=== PATIENT | female | born 1995 | race Caucasian/White ===

== ENCOUNTER 2024-03-04 14:28 | Emergency (ER) | payer BC, SELFPAY ==
[2024-03-04 14:50] VITALS: BP 113/77; PULSE 93; RESP 19; TEMP 36.7; O2SAT 98; BMI 32.4
--- NOTE | 2024-03-04 15:09 | ED_ITS ---
Discharge Plan Referrals Follow up/Referrals: Lynn Alva APRN [Primary Care Provider] - See instructions Print Language Print Language: Mosotho Discharge [facility]: [facility]ynn [facility] General Stated complaint: left leg pain with redness Mode of Arrival: Ambulatory Source of Information: Patient Limitations: No Limitations Time Seen by Provider: 03/04/24 15:07 Description of Symptoms (Recalled from Triage Doc. by RN): PATIENT C/O LEFT LEG PAIN X 2 WEEKS, AND STATES THAT TODAY AFTER TAKING A SHOWER HER LEG WAS RED. SHE STATES IT IS NOT RED NOW HEENT Symptoms (Recalled from RN notes): No Resp Symptoms (Recalled from RN notes): No Skin Symptoms (Recalled from RN notes): No MS Symptoms (Recalled from RN notes): Yes Functional Status (Recalled from RN notes): WNL History of Present Illness Provider Complaint: 28-year-old female presents for right leg red and tender for 2 weeks. Patient states today after taking a shower she looked down and her leg was red she took a picture of it but is not red now. Patient states also yesterday she had an episode where her chest felt tight and lasted a while and she was having trouble catching her breath that went away she has no symptoms at this time. Related Data Allergies Allergy/AdvReac Type Severity Reaction Status Date / Time sulfamethoxazole (From Allergy Unknown Verified 03/04/24 15:03 Bactrim) allergy reaction trimethoprim (From Bactrim) Allergy Unknown Verified 03/04/24 15:03 allergy reaction Worker's Comp Is this a Worker's Comp case?: No [facility] Disclaimer: The information contained in this section may have been updated after the patient was seen, as this information can be updated by other users. Medical History , KAVIN) Depression Anxiety Surgical History , KAVIN) History of tubal ligation Social History , KAVIN) Smoking Status: Unknown if ever smoked alcohol intake: never current occupational status: employed ROS Obtained: Yes Systems reviewed as appropriate & no additional complaints except as documented Physical Exam General General appearance: alert and in no apparent distress ENT ENT exam: Present normal exam Respiratory Respiratory exam: Present normal lung sounds bilaterally Cardiovascular Cardiovascular exam: Present regular rate and normal rhythm Neurological Exam Neurological exam: Present alert and oriented X3 Skin Skin exam: Present warm and intact Medical Decision Making Medical Records Medical records reviewed: Yes I reviewed the patient's medical records. Screening: Per USPSTF and CDC recommendations, given the prevalence of disease in our region, it is our hospital?s policy to screen for HIV and viral Hepatitis for all patients aged 18 and over and those with ongoing risk factors. John Inquiry Pt receiving controlled substance: No John was queried for this patient: No Vital Signs: 03/04/24 14:50 Temperature 98.1 F Temperature Source Oral Pulse Rate [Left Brachial] 93 H Respiratory Rate 19 Blood Pressure [Left Arm] 113/77 Blood Pressure Mean [Left Arm] 89 Blood Pressure Source [Left Arm] Automatic Cuff Blood Pressure Position [Left Arm] Sitting 02 Sat by Pulse Oximetry 98 Oxygen Delivery Method Room Air Lab Data Lab results reviewed: Yes I reviewed the patient's lab results. 03/04/24 15:20 Physician Consults Physician Consulted: Dr. Lim in the ER sent to the ER for eval due to positive D-dimer
[2024-03-04 15:34] LABS: MANUAL DIFFERENTIAL MANUAL DIFFERENTIAL (MANUAL DIFF)
[2024-03-04 15:46] LABS: Albumin Level 4.3 g/dl (3.5-5.0); Chloride 105 mmol/L (98-107); Potassium 3.8 mmoL/L (3.5-5.1); Sodium 139 mmol/L (136-145)
[2024-03-04 15:48] LABS: Blood Urea Nitrogen 9 mg/dl (7-17); Creatinine Clearance Estimated 148 mL/min (50-200); Estimated Glomerular Filt Rate 84 ml/min (>60); GFR (African American) 102 ML/MIN (>60)
[2024-03-04 15:49] LABS: Alanine Aminotransferase 18 U/L (12-78); Albumin/Globulin Ratio 1.2 (1.1-1.8); Alkaline Phosphatase 79 U/L (38-126); Anion Gap 10.8 mEq/L (5-15); Aspartate Amino Transferase 19 U/L (14-36); Bilirubin,Total 0.6 mg/dl (0.2-1.3); Calcium 9.3 mg/dl (8.4-10.2); Carbon Dioxide 27 mmol/L (22.0-30.0); Globulin 3.5 g/dL (1.3-3.2); Glucose 95 mg/dl (74-100); Total Protein,Serum 7.8 g/dl (6.3-8.2)
[2024-03-04 15:59] LABS: D-Dimer 0.68 ug/mL (0.0-0.5)
--- NOTE | 2024-03-04 16:32 | PC.NURSE ---
PATIENT SENT TO ER PER Angelo FRITZ APRN FOR FURTHER EVALUATION. REPORT GIVEN TO DR. LUI PER Angelo FRITZ APRN. PATIENT AMBULATED TO ER WITH [facility] STAFF AT THIS TIME
[2024-03-04 16:34] VITALS: BP 147/82; PULSE 83; O2SAT 100
[2024-03-04 16:36] VITALS: BP 147/82; PULSE 79; RESP 18; TEMP 37.1; O2SAT 100; BMI 34.4
[2024-03-04 16:43] LABS: Eosinophils % 2 % (0-3); Lymphocytes % 28 % (10-50); Monocytes % 2 % (2-9); Neutrophils % 68 % (42-76); Total Cells Counted 100
[2024-03-04 16:44] LABS: Basophils # 0.1 K/mm3 (0-0.2); Basophils % 0.8 % (0.1-2.0); Eosinophils # 0.2 K/mm3 (0.0-0.4); Eosinophils % 2.2 % (0.1-12.0); Hemoglobin 13.6 g/dL (12.2-16.2); Lymphocytes # 1.9 K/mm3 (0.7-4.5); Lymphocytes % 22.9 % (10-50); Mean Corpuscular HGB Conc 34.1 g/dL (31.8-35.4); Mean Corpuscular Hemoglobin 29.7 pg (27.0-31.2); Mean Corpuscular Volume 87.3 fl (81-99); Monocytes # 0.4 K/mm3 (0.1-1.0); Monocytes % 4.3 % (1.7-9.3); Neutrophils # 5.8 K/mm3 (1.8-7.8); Neutrophils % 69.8 % (37.0-80.0); Platelet Count 243 K/mm3 (142-424); Red Blood Count 4.58 M/mm3 (4.20-5.40); Red Cell Distribution Width 12.7 % (11.5-17.5); White Blood Count 8.3 K/mm3 (4.8-10.8)
[2024-03-04 16:45] LABS: Platelet Estimate Normal; RBC Morphology Normal
--- NOTE | 2024-03-04 17:05 | CT_ITS ---
PROCEDURE INFORMATION: Exam: CTA Chest With Contrast Exam date and time: 03/04/2024 6:09 PM Age: 28 years old Clinical indication: Shortness of breath; Additional info: Shortness of reath TECHNIQUE: Imaging protocol: Computed tomographic angiography of the chest with contrast. Exam focused on the arteries. 3D rendering (Not supervised by radiologist): MIP and/or 3D reconstructed images were created by the technologist. Radiation optimization: All CT scans at this facility use at least one of these dose optimization techniques: automated exposure control; mA and/or kV adjustment per patient size (includes targeted exams where dose is matched to clinical indication); or iterative reconstruction. Contrast material: ISO 370; Contrast volume: 70 ml; Contrast route: INTRAVENOUS (IV); COMPARISON: No relevant prior studies available. FINDINGS: Pulmonary arteries: Normal. No pulmonary emboli. Aorta: Unremarkable. No aortic aneurysm. No aortic dissection. Lungs: Unremarkable. No consolidation. No masses. Pleural spaces: Unremarkable. No pneumothorax. No pleural effusion. Heart: Unremarkable. No cardiomegaly. No pericardial effusion. Lymph nodes: Unremarkable. No enlarged lymph nodes. Bones/joints: Unremarkable. No acute fracture. Soft tissues: Unremarkable. IMPRESSION: No acute findings.
--- NOTE | 2024-03-04 17:25 | ED_ITS ---
<Statement entered by Matilda Lim DO - 03/04/24 20:13> I was consulted by the BENJAMIN, and we discussed the complexity of the problems being addressed. I approved the treatment and management plan for this patient's care in the emergency department, thus performing a substantive portion of the medical decision making. CT PE not concerning for PE, and exam is very reassuring with negative bedside DVT ultrasound. Given this, I feel the patient likely has no clot and is appropriate for discharge home with follow-up with primary care and strict return precautions. Patient was discharged after all questions were answered. Matilda Lim DO Discharge Plan Disposition Patient Disposition: Home, Self-Care Condition: Good Referrals Follow up/Referrals: Lynn Alva APRN [Primary Care Provider] - See instructions Activity Restrictions/Add. Instructions Additional Instructions/Restrictions: Fluids and rest. Return to the ED with any worsening symptoms or concerns. Please follow-up with your PCP next week Clinical Impressions Clinical Impression: Lower extremity edema, Shortness of breath Print Language Print Language: Sinhala Discharge ED Provider: Matilda Lim General Adult HPI <Matilda Lim DO - Last Filed: 03/04/24 17:26> General Chief complaint: Extremity Problem,Nontraumatic Stated complaint: left leg pain with redness Time Seen by Provider: 03/04/24 15:07 Mode of Arrival: Ambulatory Source of Information: Patient Limitations: No Limitations Description of Symptoms (Recalled from ER Triage Doc. by RN): left leg pain comes and goes x2 weeks Related Data Allergies Allergy/AdvReac Type Severity Reaction Status Date / Time sulfamethoxazole (From Allergy Unknown Verified 03/04/24 15:03 Bactrim) allergy reaction trimethoprim (From Bactrim) Allergy Unknown Verified 03/04/24 15:03 allergy reaction <Tegan Gasca (ED), [employer] - Last Filed: 03/04/24 19:36> History of Present Illness HPI narrative: This is a 28-year-old female who presents to the ED due to left leg pain and some chest tightness. She initially came into the [facility] for the symptoms. A D- dimer was completed and was 0.68. She was sent over for a CTA. Patient complains of chest tightness that comes and goes. She does not have any chest tightness at this time. No shortness of breath at this time. She says this has been going on for 2 weeks. She also has some left leg pain that she noticed over the past 2 weeks. She did notice after she got out of the shower this morning that it was red on her calf. She says there is no redness no and no pain at this time [facility] <Matilda Lim DO - Last Filed: 03/04/24 17:26> [facility] Disclaimer: The information contained in this section may have been updated after the patient was seen, as this information can be updated by other users. Medical History , [employer]) Depression Anxiety Surgical History , [employer]) History of tubal ligation Social History (Updated 03/04/24 @ 16:29 by Lynn Alva ([facility]), [employer]) Smoking Status: Never smoker alcohol intake: never current occupational status: employed Travel in the last 8 weeks: None <Tegan Gasca (ED), [employer] - Last Filed: 03/04/24 19:36> ROS Obtained: Yes Systems reviewed as appropriate & no additional complaints except as documented Physical Exam <Matilda Lim DO - Last Filed: 03/04/24 17:26> General General appearance: alert and in no apparent distress <Tegan Gasca (ED), [employer] - Last Filed: 03/04/24 19:36> Head Head exam: atraumatic and normocephalic Eye Eye exam: Present normal appearance, PERRL and EOMI ENT ENT exam: Present normal exam, normal oropharynx and mucous membranes moist Neck Neck exam: Present normal inspection, full ROM and trachea midline Respiratory Respiratory exam: Present normal lung sounds bilaterally Cardiovascular Cardiovascular exam: Present regular rate, normal rhythm, normal heart sounds, +S1 and +S2 Abdominal Exam Abdominal exam: Present soft and normal bowel sounds Extremities Exam Extremities exam: Present normal inspection, full ROM and normal capillary refill Back Exam Back exam: Present normal inspection Neurological Exam Neurological exam: Present alert, oriented X3 and normal gait Skin Skin exam: Present warm, dry and intact Medical Decision Making <Matilda Lim DO - Last Filed: 03/04/24 17:26> Medical Records Screening: Per USPSTF and CDC recommendations, given the prevalence of disease in our region, it is our hospital?s policy to screen for HIV and viral Hepatitis for all patients aged 18 and over and those with ongoing risk factors. Vital Signs: 03/04/24 14:50 03/04/24 16:34 03/04/24 16:36 Temperature 98.1 F 98.7 F Temperature Source Oral Oral Pulse Rate 83 Pulse Rate [Left Brachial] 93 H 79 Respiratory Rate 19 18 Blood Pressure 147/82 H Blood Pressure [Left Arm] 113/77 147/82 H Blood Pressure Mean [Left Arm] 89 103 Blood Pressure Source [Left Arm] Automatic Cuff Blood Pressure Position [Left Arm] Sitting 02 Sat by Pulse Oximetry 98 100 100 Oxygen Delivery Method Room Air Lab Data Lab Results 03/04/24 15:20: WBC 8.3, RBC 4.58, Hgb 13.6, Hct 40.0, MCV 87.3, MCH 29.7, MCHC 34.1, RDW 12.7, Plt Count 243, MPV 8.0, Neut % (Auto) 69.8, Lymph % (Auto) 22.9, Maury % (Auto) 4.3, Eos % (Auto) 2.2, Baso % (Auto) 0.8, Neut # (Auto) 5.8, Lymph # (Auto) 1.9, Maury # (Auto) 0.4, Eos # (Auto) 0.2, Baso # (Auto) 0.1, Total Counted 100, Neutrophils % (Manual) 68, Lymphocytes % (Manual) 28, Monocytes % (Manual) 2, Eosinophils % (Manual) 2, Platelet Estimate Normal, RBC Morphology Normal, D-Dimer 0.68 H, Sodium 139, Potassium 3.8, Chloride 105, Carbon Dioxide 27, Anion Gap 10.8, BUN 9, Creatinine 0.80, Estimated Creat Clear 148, Estimated GFR 84, Est GFR ( Amer) 102, Glucose 95, Calcium 9.3, Total Bilirubin 0.6, AST 19, ALT 18, Alkaline Phosphatase 79, Total Protein 7.8, Albumin 4.3, G lobulin 3.5 H, Albumin/Globulin Ratio 1.2 03/04/24 16:54: HIV 1&2 Antibody Rapid Nonreactive 03/04/24 15:20 03/04/24 15:20 Orders (Tests/Meds): ED MEDICATIONS Discontinued Medications Generic Name Dose Route Start Last Admin Trade Name Melia PRN Reason Stop Dose Admin Iopamidol 70 ml 03/04/24 18:16 03/04/24 18:17 Iopamidol-370 (76%);100ml Bottle IV 03/04/24 18:17 70 ml ONCE ONE Administration Sodium Chloride 50 ml 03/04/24 18:16 03/04/24 18:16 0.9 % Sodium Chloride 50 Ml Vial IV 03/04/24 18:17 50 ml ONCE ONE Administration Sodium Chloride 10 ml 03/04/24 18:16 03/04/24 18:17 Sodium Chloride 0.9% 10ml Syr (Rad Only) IV 03/04/24 18:17 10 ml ONCE ONE Administration ORDERS Category Date Time Status CTA Chest [CT angio chest PE protocol] Stat Cat Scan 03/04/24 17:05 Completed POCUS Point of Care (ER Only) Stat Exams 03/04/24 16:40 Taken CBC Man Diff [Complete Blood Count Man Dif] Stat Lab 03/04/24 15:20 Completed CMP [Comprehensive Metabolic Panel] Stat Lab 03/04/24 15:20 Completed D-Dimer Stat Lab 03/04/24 15:20 Completed HIV (1&2) Antibody Rapid Stat Lab 03/04/24 16:54 Completed Hep C Ab with Reflex to RNA Stat Lab 03/04/24 16:54 Received <Tegan Gasca (ED), [employer] - Last Filed: 03/04/24 19:36> John Inquiry Pt receiving controlled substance: No John was queried for this patient: No Vital Signs: 03/04/24 14:50 03/04/24 16:34 03/04/24 16:36 Temperature 98.1 F 98.7 F Temperature Source Oral Oral Pulse Rate 83 Pulse Rate [Left Brachial] 93 H 79 Respiratory Rate 19 18 Blood Pressure 147/82 H Blood Pressure [Left Arm] 113/77 147/82 H Blood Pressure Mean [Left Arm] 89 103 Blood Pressure Source [Left Arm] Automatic Cuff Blood Pressure Position [Left Arm] Sitting 02 Sat by Pulse Oximetry 98 100 100 Oxygen Delivery Method Room Air Lab Data Lab Results 03/04/24 15:20: WBC 8.3, RBC 4.58, Hgb 13.6, Hct 40.0, MCV 87.3, MCH 29.7, MCHC 34.1, RDW 12.7, Plt Count 243, MPV 8.0, Neut % (Auto) 69.8, Lymph % (Auto) 22.9, Maury % (Auto) 4.3, Eos % (Auto) 2.2, Baso % (Auto) 0.8, Neut # (Auto) 5.8, Lymph # (Auto) 1.9, Maury # (Auto) 0.4, Eos # (Auto) 0.2, Baso # (Auto) 0.1, Total Counted 100, Neutrophils % (Manual) 68, Lymphocytes % (Manual) 28, Monocytes % (Manual) 2, Eosinophils % (Manual) 2, Platelet Estimate Normal, RBC Morphology Normal, D-Dimer 0.68 H, Sodium 139, Potassium 3.8, Chloride 105, Carbon Dioxide 27, Anion Gap 10.8, BUN 9, Creatinine 0.80, Estimated Creat Clear 148, Estimated GFR 84, Est GFR ( Amer) 102, Glucose 95, Calcium 9.3, Total Bilirubin 0.6, AST 19, ALT 18, Alkaline Phosphatase 79, Total Protein 7.8, Albumin 4.3, G lobulin 3.5 H, Albumin/Globulin Ratio 1.2 03/04/24 16:54: HIV 1&2 Antibody Rapid Nonreactive Orders (Tests/Meds): ED MEDICATIONS Discontinued Medications Generic Name Dose Route Start Last Admin Trade Name Freq PRN Reason Stop Dose Admin Iopamidol 70 ml 03/04/24 18:16 03/04/24 18:17 Iopamidol-370 (76%);100ml Bottle IV 03/04/24 18:17 70 ml ONCE ONE Administration Sodium Chloride 50 ml 03/04/24 18:16 03/04/24 18:16 0.9 % Sodium Chloride 50 Ml Vial IV 03/04/24 18:17 50 ml ONCE ONE Administration Sodium Chloride 10 ml 03/04/24 18:16 03/04/24 18:17 Sodium Chloride 0.9% 10ml Syr (Rad Only) IV 03/04/24 18:17 10 ml ONCE ONE Administration ORDERS Category Date Time Status CTA Chest [CT angio chest PE protocol] Stat Cat Scan 03/04/24 17:05 Completed POCUS Point of Care (ER Only) Stat Exams 03/04/24 16:40 Taken CBC Man Diff [Complete Blood Count Man Dif] Stat Lab 03/04/24 15:20 Completed CMP [Comprehensive Metabolic Panel] Stat Lab 03/04/24 15:20 Completed D-Dimer Stat Lab 03/04/24 15:20 Completed HIV (1&2) Antibody Rapid Stat Lab 03/04/24 16:54 Completed Hep C Ab with Reflex to RNA Stat Lab 03/04/24 16:54 Received Medical Decision Narrative: Insert review patient is a 28-year-old female presenting to the emergency department for evaluation of shortness of breath, left leg swelling and elevated D-dimer at the [facility]. Patient is hemodynamically stable and nontoxic-appearing upon arrival, afebrile. Differential diagnosis includes DVT, PE among others. Workup will be conducted with hematologic labs, specific imaging. Formal imaging read remarkable for nothing acute. Upon repeat evaluation patient's pain is improved. Procedures <Matilda Lim, DO - Last Filed: 03/04/24 17:26> Limited Ultrasound Findings:: Limited DVT ultrasound Indication: Limited compression ultrasonography of the left lower extremity was performed to evaluate for non-compressibility of the deep veins in the patient. The ultrasound was performed with the following indications, as noted in the H&P: Left leg pain and discoloration Identified structures: Left [common femoral vein, femoral vein, popliteal vein were examined.] Findings: Upper extremity: Lower Extremity: Left CFV: Good compressibility Left FV Good compressibility Left Popliteal vein: Good compressibility Impression: Normal left lower extremity DVT ultrasound Images were not saved to permanent archive The study was technically adequate CPT: 30374-29-[id number] (complete bilateral study) This study was performed by me, and I personally interpreted all images/videos. Based on my clinical judgement, these images were adequate and did not necessitate further imaging. Critical Care <Tegan Gasca (ED), [employer] - Last Filed: 03/04/24 19:36> Critical Care Time Critical Care Time: No
[2024-03-04 18:01] LABS: HIV (1&2) Antibody Rapid NONREACTIVE (NONREACTIVE)
[2024-03-04] MEDS: 0.9 % SODIUM CHLORIDE 50 ML VIAL IV (18:16)
[2024-03-04] MEDS: SODIUM CHLORIDE 0.9% 10ML SYR (RAD ONLY) 10 ML IV (18:17)
[2024-03-04] MEDS: IOPAMIDOL-370 (76%);100ML BOTTLE 70 ML IV (18:17)
[2024-03-04 19:55] VITALS: BP 132/74; PULSE 70; RESP 18; TEMP 36.6; O2SAT 98
[2024-03-07 06:52] LABS: HCV Ab Non Reactive (Non Reactive)
== END 2024-03-04 19:59 | disposition home or self-care (01) ==
LOC: UTC 14:36 → ER 16:30
PROVIDERS: Emergency Provider Emergency Medicine; PCP Nurse Practitioner Family
DX: R60.0 Localized edema (principal); M79.605 Pain in left leg; R07.89 Other chest pain; R06.02 Shortness of breath
CPT/HCPCS: 71275; 80053; 85007; 85014; 85018; 85048; 85049; 85378; 86803; 87389; 99285; Q9967